=== PATIENT | male | born 1980 | race Caucasian/White ===

== ENCOUNTER 2016-11-28 06:26 | Emergency (ER) | payer OTHER ==
[~2016-11-28] VITALS: Ht 177.8 cm; Wt 104.3 kg
[2016-11-28] MEDS ORDERED: PAXIL20 M1 PO (06:53)
--- NOTE | 2016-11-28 06:58 | ED GENERAL ADULT ---
History of Present Illness General Chief Complaint: General Adult Stated Complaint: SWEATY, HANDS ARE NUMB, WHITE, NAUSEA PER PT Source: patient Exam Limitations: no limitations Vital Signs & Intake/Output Vital Signs & Intake/Output Vital Signs Date Time Temp Pulse Resp B/P Pulse O2 O2 Flow FiO2 Ox Delivery Rate 11/28 0715 96.8 80 18 129/75 98 11/28 0709 99 Room Air 11/28 0643 96.5 103 16 142/75 99 Room Air Allergies Coded Allergies: No Known Allergies (08/09/16) Triage Note: 36yo MALE TO TRIAGE W/CO WHITE, N,V,D X 2 HRS. Triage Nurses Notes Reviewed? yes HPI: Patient was driving to work this morning when he suddenly felt nauseous and began vomiting. Shortly thereafter he broke out in a cold sweat. Patient became nervous and started to breathe fast. Patient states that then his hands cramped up. Patient drove straight to the emergency room. Patient denies any chest pain or palpitations. Patient denies any abdominal pain or diarrhea. Patient states that he does have a nonproductive cough for the past 2 days. Patient states he is now getting a frontal headache only when he coughs. There is no pain when he is not coughing. There is no radiation of the pain. The pain is a pressure sensation that he rates as a 4 out of 10. Of note patient states that he drank heavily over the weekend which is very unusual for him and he abruptly stopped his Paxil 2 days ago. (KEVIN KELLOGG,KRISTIN Alvarado) Reconcile Medications Paroxetine HCl (Paxil) 20 MG TABLET 1 TAB PO DAILY DEPRESSION (Reported) (STONE KELLOGG,MARY Herrera) Past History Travel History Traveled to [place] past 21 day No Medical History Any Pertinent Medical History? see below for history Psychiatric: depression Surgical History Surgical History: non-contributory Psychosocial History What is your primary language [place] Island[place] Tobacco Use: Never used ETOH Use: occasional use Illicit Drug Use: denies illicit drug use Family History Hx Contributory? No (KEVIN KELLOGG,KRISTIN Alvarado) Review of Systems Review of Systems Constitutional: Reports: see HPI, chills. EENTM: Reports: no symptoms. Respiratory: Reports: see HPI, cough. Cardiovascular: Reports: no symptoms. GI: Reports: see HPI, nausea, vomiting. Genitourinary: Reports: no symptoms. Musculoskeletal: Reports: no symptoms. Skin: Reports: see HPI. Neurological/Psychological: Reports: no symptoms. Hematologic/Endocrine: Reports: no symptoms. Immunologic/Allergic: Reports: no symptoms. All Other Systems: Reviewed and Negative (KEVIN KELLOGG,KRISTIN Alvarado) Physical Exam Physical Exam General Appearance: well developed/nourished, alert, awake, anxious, moderate distress Head: atraumatic, normal appearance Eyes: Bilateral: PERRL, EOMI. Ears, Nose, Throat: normal pharynx, normal ENT inspection, hearing grossly normal Neck: normal inspection, supple, full range of motion Respiratory: normal breath sounds, chest non-tender, no respiratory distress, lungs clear Cardiovascular: regular rate/rhythm, normal peripheral pulses Peripheral Pulses: 3+ radial (R), 3+ radial (L) Gastrointestinal: normal bowel sounds, soft, non-tender, no organomegaly Back: normal inspection, normal range of motion Extremities: normal inspection, normal capillary refill, normal range of motion, no edema Neurologic/Psych: no motor/sensory deficits, awake, alert, oriented x 3, normal gait, normal mood/affect Skin: intact, normal color, warm/dry, PATIENT STATES HIS SKIN DRIED UP AND SAYS HE CAME INTO THE EMERGENCY ROOM. Lymphatic: no anterior cervical maty Core Measures ACS in differential dx? No CVA/TIA Diagnosis: No Severe Sepsis Present: No Septic Shock Present: No (KEVIN KELLOGG,KRISTIN Alvarado) Progress Differential Diagnoses I considered the following diagnoses in my evaluation of the patient: [ Electrolyte abnormality, medication withdrawal, dehydration, anxiety, carpal spasms] Plan of Care: Orders Procedure Date/time Status LIPASE 11/28 0652 Complete ETHANOL 11/28 0652 Complete COMPREHENSIVE METABOLIC PANEL 11/28 06 Complete CBC WITHOUT DIFFERENTIAL 11/28 651 Complete AMYLASE 11/28 06 Complete Current Medications Sig/Ajith Start time Last Medication Dose Stop Time Status Admin Acetaminophen 975 MG ONCE ONE 11/28 0800 AC (Tylenol) 11/28 0801 Laboratory Tests 11/28/16 0658: Anion Gap 23 H, Estimated GFR > 60, BUN/Creatinine Ratio 12.2, Glucose 121 H, Calcium 9.9, Total Bilirubin 1.0, AST 116 H, ALT 169 H, Alkaline Phosphatase 79, Total Protein 8.7 H, Albumin 4.8, Globulin 3.9, Albumin/Globulin Ratio 1.2, Amylase 89, Lipase 195, CBC w Diff NO MAN DIFF REQ, RBC 5.26, MCV 94.2 H, MCH 32.0 H, RDW 12.1, MPV 8.2, Gran % 57.6, Lymphocytes % 33.8, Monocytes % 6.7, Eosinophils % 1.3, Basophils % 0.6, Absolute Granulocytes 3.8, Absolute Lymphocytes 2.2, Absolute Monocytes 0.4, Absolute Eosinophils 0.1, Absolute Basophils 0, PUBS MCHC 34.0, Serum Alcohol 47.0 Initial ED EKG: none Hand-Off Endorsed To: MARY RITTER MD Endorsed Time: 0700 Pending: labs (KEVIN KELLOGG,KRISTIN Alvarado) Comments: 11/28/2016 7:09:23 AM patient signed out to me by Dr. Tran at shift change person. 11/28/2016 7:58:32 AM patient is received a liter of fluids and is feeling better. He is asked for something for a headache and Tylenol has been ordered. I have asked that he follow-up with his primary care physician for reevaluation this week given the elevation of his liver enzyme studies. (MARY RITTER MD) Departure Departure Condition: Stable Referrals: SHREE KELLOGG,SIA Caceres (PCP/Family) Departure Forms: Customer Survey General Discharge Information (KRISTIN TRAN MD) Departure Disposition: HOME OR SELF CARE Clinical Impression Primary Impression: Vomiting Qualifiers: Vomiting type: unspecified Vomiting Intractability: non-intractable Nausea presence: with nausea Qualified Code: R11.2 - Nausea with vomiting, unspecified Secondary Impressions: Alcohol use, Transaminitis Additional Instructions: Try to avoid excessive alcohol. Maintain a good fluid intake for the remainder of the day. Follow-up with your primary care doctor tomorrow. Return if any concerns or sudden worsening. (MARY RITTER MD) Critical Care Note Critical Care Note Critical Care Time: non-applicable (KRISTIN TRAN MD)
[2016-11-28 07:15] VITALS: BP 129/75
[2016-11-28 07:46] LABS: ABSOLUTE BASOPHIL COUNT 0 /CUMM (0.0-0.2); ABSOLUTE EOSINOPHIL COUNT 0.1 /CUMM (0.0-0.7); ABSOLUTE GRANULOCYTE CT 3.8 /CUMM (1.4-6.5); ABSOLUTE LYMPH COUNT 2.2 /CUMM (1.2-3.4); ABSOLUTE MONOCYTE COUNT 0.4 /CUMM (0.10-0.60); BASOPHIL % 0.6 % (0.0-2.0); EOSINOPHIL % 1.3 % (0-5); GRANULOCYTE % 57.6 % (42.2-75.2); HEMATOCRIT 49.6 % (42-52); MEAN CORPUSCULAR VOLUME 94.2 FL (80.0-94.0); MEAN PLATELET VOLUME 8.2 FL (7.4-10.4); PLATELET COUNT 262 /CUMM (130-400); RBC DISTRIBUTION WIDTH 12.1 % (11.5-14.5); RED BLOOD CELL CT 5.26 /CUMM (4.70-6.10); WHITE BLOOD CELL COUNT 6.6 /CUMM (4.8-10.8)
== END 2016-11-28 08:06 ==
LOC: ERH 06:26
PROVIDERS: Emergency Medicine
DX: R11.2 Nausea with vomiting, unspecified (principal); F10.10 Alcohol abuse, uncomplicated; R74.0 Nonspecific elevation of levels of transaminase and lactic acid dehydrogenase [LDH]
CPT/HCPCS: 96361; 96374; G0480; J2405

== ENCOUNTER 2018-06-03 19:43 | Emergency (ER) | payer OTHER ==
[~2018-06-03 19:43] MED LIST: PAXIL20 M1 PO
--- NOTE | 2018-06-03 20:28 | ED HAND/WRIST INJURY COMPLAINT ---
History of Present Illness General Chief Complaint: Laceration Procedure Stated Complaint: LAC TO FINGER NAIL Source: patient Exam Limitations: no limitations Vital Signs & Intake/Output Vital Signs & Intake/Output Vital Signs Date Time Temp Pulse Resp B/P B/P Pulse O2 O2 Flow FiO2 Mean Ox Delivery Rate 06/03 2258 78 122/75 06/03 1946 98.9 86 20 125/80 96 Room Air Allergies Coded Allergies: No Known Allergies (08/09/16) Reconcile Medications Cephalexin (Keflex) 500 MG CAPSULE 1 CAP PO TID finger wound Paroxetine HCl (Paxil) 20 MG TABLET 1 TAB PO DAILY DEPRESSION (Reported) Tramadol HCl 50 MG TABLET 1 TAB PO BIDP PRN pain Triage Note: PT SENT TO ED BY [facility] FOR LACERATION TO RT PINKY NAIL BED. PT STATES THE LACERATION WAS FROM A PIECE OF STEEL. LAST TETANUS WAS APPROX 8 YRS AGO. PT RECEIVED 1 CC 2% LIDO TO WOUND AT [facility]. PT ARRIVED WITH DRESSING IN PLACE. WOUND NOT VISUALIZED IN TRIAGE Triage Nurses Notes Reviewed? yes Occurred: just prior to arrival Duration: hour(s): Timing: single episode today Injury Environment: home Severity: moderate Pain/Injury Location: Right: 5th finger. Context: laceration HPI: 37-year-old male presents emergency department complaining of laceration to right fifth digit sustained at home prior to arrival. Patient states that he was using a wrench slipped and cut finger on a piece of steel. He went to an urgent care and was referred here for further evaluation. Patient reporst tingling sensation in finger tip following the injury. He is up to date with tetanus vaccine. (Winsome CUELLAR,Cely Simpson) Past History Travel History Traveled to [place] past 21 day No Medical History Any Pertinent Medical History? see below for history Neurological: NONE EENT: NONE Cardiovascular: NONE Respiratory: NONE Gastrointestinal: NONE Hepatic: NONE Renal: NONE Musculoskeletal: NONE Psychiatric: depression Endocrine: NONE Surgical History Surgical History: non-contributory Psychosocial History What is your primary language Bulgarian Tobacco Use: Quit >30 days ago ETOH Use: occasional use Illicit Drug Use: denies illicit drug use Family History Hx Contributory? No (Cely Davis) Review of Systems Review of Systems Constitutional: Reports: no symptoms. EENTM: Reports: no symptoms. Respiratory: Reports: no symptoms. Cardiovascular: Reports: no symptoms. GI: Reports: no symptoms. Genitourinary: Reports: no symptoms. Musculoskeletal: Reports: see HPI. Skin: Reports: see HPI. Neurological/Psychological: Reports: no symptoms. Hematologic/Endocrine: Reports: no symptoms. Immunologic/Allergic: Reports: no symptoms. All Other Systems: Reviewed and Negative (Winsome CEULLAR,Cely Simpson) Physical Exam Physical Exam General Appearance: well developed/nourished, no apparent distress, alert, awake Head: atraumatic, normal appearance Eyes: Bilateral: normal appearance. Ears, Nose, Throat: hearing grossly normal Neck: normal inspection, supple, full range of motion Cardiovascular/Respiratory: no respiratory distress Back: normal inspection, normal range of motion Hand Left: normal inspection, normal range of motion Hand Right: 5th digit: lateration to distal finger at lateral aspect adjacent to nail and extending to nail bed, nail is in place and intact, ROM intact Neurologic/Tendon: normal motor functions, normal tendon functions, unable to assess sensation d/t use of lidocaine at urgent care prior to the patient's arrival here in ED Skin: laceration as mentioned (Winsome CUELLAR,Cely Simpson) Progress Differential Diagnosis: contusion, fracture, sprain, laceration, nailbed injury Plan of Care: Orders Procedure Date/time Status XRY-FINGERS, RIGHT 06/03 2145 Active Patient has laceration adjacent to the nail and nailbed injury is evident on physical exam. Despite these findings his nail is intact and was not displaced. Patient offered nail removal to completely close nailned injury as this injury cannot be visualized fully/closed without nail removal however he prefers leaving nail in place and closing surrounding skin. Patient informed of risk of abnormal nail regrowth. Xray shows tuft fracture. Patient placed in finger splint and started on antibiotics. Patient agrees with the plan of care, he was given plastics referral. Discussed findings with Dr. Silva who agrees with this plan. Diagnostic Imaging: Viewed by Me: Radiology Read. Discussed w/RAD: Radiology Read. Radiology Impression: PATIENT: ROSSY JACOBO PRESENT AGE: 37 PATIENT ACCOUNT NO: [id number] : 82 LOCATION: [facility] ORDERING PHYSICIAN: Cely CUELLAR SERVICE DATE: 06/03/18 EXAM TYPE: RAD - XRY-FINGERS, RIGHT EXAMINATION: AP right hand, 2 views fifth digit CLINICAL INFORMATION: Distal pinky laceration, pain COMPARISON: None FINDINGS: There is a comminuted fracture of the distal aspect of the distal phalanx of the right fifth digits. Fractures mildly displaced. The fracture line does not extend to the distal interphalangeal joint. No other fractures identified. Laceration of the overlying soft tissues is demonstrated most likely on the lateral view. The remainder of the hand examination is within normal limits. No radiopaque foreign body. IMPRESSION: Comminuted, mildly displaced fracture involving the distal phalanx of the right fifth finger with associated laceration. DICTATED BY: Cassie Bond MD DATE/TIME DICTATED:06/03/182237 SAW EDGE FUSER CIRCULAR:SUNIL DATE/TIME TRANSCRIBED:06/03/182237 CONFIDENTIAL, DO NOT COPY WITHOUT APPROPRIATE AUTHORIZATION. <Electronically signed in Other Vendor System> SIGNED BY: Cassie Bond MD 06/03/18 [id number] (Winsome CUELLAR,Cely Simpson) Departure Departure Disposition: HOME OR SELF CARE Condition: Stable Clinical Impression Primary Impression: Finger laceration Qualifiers: Encounter type: initial encounter Finger: little finger Damage to nail status: unspecified Foreign body presence: without foreign body Laterality: right Qualified Code: S61.216A - Laceration without foreign body of right little finger without damage to nail, initial encounter Secondary Impressions: Open fracture of distal phalangeal tuft Referrals: Tylor KELLOGG,Aranza Marx (PCP/Family) Wes KELLOGG,Sanchez Hightower Additional Instructions: Wear finger splint and follow up with hand specialist. Return in 7-10 days for removal of stitches. Take full course of antibiotics. Take percocet as prescribed as needed for pain. Return sooner if you develop worsening symptoms including redness, swelling, increasing pain. Please note that there might be incidental findings in your evaluation that are unrelated to the current emergency department visit. Please notify your primary care doctor about this emergency department visit in order to obtain and review all of the testing performed so that these incidental findings can be monitored as needed. If you had an x-ray performed, please understand that some fractures may not be seen on the initial set of x-rays. If your symptoms persist you might need a repeat set of x-rays to check for such a fracture. If you had a laceration evaluated, please understand that foreign bodies such as glass or wood may not be visible to the naked eye or on plain x-rays. If the wound becomes red, swollen, increasingly more painful or if there is any drainage from the wound, please have it reevaluated by a physician for the possibility of a retained foreign body. If you're unable to follow up as outlined in the discharge instructions please return to the emergency department. Thank you for choosing the [facility] Emergency Department for your care. It was a pleasure to serve you today. Departure Forms: Customer Survey General Discharge Information Prescriptions: Current Visit Scripts Tramadol HCl 1 TAB PO BIDP PRN pain #10 TAB Cephalexin (Keflex) 1 CAP PO TID #21 CAP (Winsome CUELLAR,Cely Simpson) PA/GOVERNMENT AFFAIRS SPECIALIST Co-Sign Statement Statement: ED Attending supervision documentation- I saw and evaluated the patient. I have also reviewed all the pertinent lab results and diagnostic results. I agree with the findings and the plan of care as documented in the PA's/GOVERNMENT AFFAIRS SPECIALIST's documentation. x I have reviewed the ED Record and agree with the PA's/GOVERNMENT AFFAIRS SPECIALIST's documentation. [] Additions or exceptions (if any) to the PAs/GOVERNMENT AFFAIRS SPECIALIST's note and plan are summarized below: [] (Ricardo KELLOGG,Eric) Procedures Laceration/Wound Repair Laceration/Wound Repair: Wound Location: 5th finger Wound's Depth, Shape: irregular Wound Length (cm): 1 Wound Explored: irrigated extensively Irrigated w/ Saline (ccs): 500 Betadine Prep? Yes Anesthesia: digit block, 1% lidocaine Volume Anesthetic (ccs): 5 Wound Repaired With: sutures Suture Size/Type: 4:0, nylon Number of Sutures: 4 Splint Applied? Yes By Who? by me Type of Splint Applied: finger Tetanus Status: up to date Progress: Patient tolerated procedure well. (Cely Davis)
--- NOTE | 2018-06-03 22:43 | RADIOLOGY REPORT ---
EXAMINATION: AP right hand, 2 views fifth digit CLINICAL INFORMATION: Distal pinky laceration, pain COMPARISON: None FINDINGS: There is a comminuted fracture of the distal aspect of the distal phalanx of the right fifth digits. Fractures mildly displaced. The fracture line does not extend to the distal interphalangeal joint. No other fractures identified. Laceration of the overlying soft tissues is demonstrated most likely on the lateral view. The remainder of the hand examination is within normal limits. No radiopaque foreign body. IMPRESSION: Comminuted, mildly displaced fracture involving the distal phalanx of the right fifth finger with associated laceration.
[2018-06-03] MEDS ORDERED: KEFLEX500 M1 PO (22:48)
[2018-06-03] MEDS ORDERED: TRAMADOL HCL50 M1 PO (22:48)
[2018-06-03 22:58] VITALS: BP 122/75
== END 2018-06-03 22:59 ==
LOC: ERH 19:43
DX: S61.316A Laceration without foreign body of right little finger with damage to nail, initial encounter (principal); S62.636A Displaced fracture of distal phalanx of right little finger, initial encounter for closed fracture; Z87.891 Personal history of nicotine dependence; W45.8XXA Other foreign body or object entering through skin, initial encounter; Y93.89 Activity, other specified; Y92.009 Unspecified place in unspecified non-institutional (private) residence as the place of occurrence of the external cause
CPT/HCPCS: 73140-RT; J2001

== ENCOUNTER 2018-06-14 09:08 | Emergency (ER) | payer OTHER ==
[~2018-06-14] VITALS: Ht 177.8 cm; Wt 102.1 kg
[~2018-06-14 09:08] MED LIST changes: +KEFLEX500 M1 PO; +TRAMADOL HCL50 M1 PO
[2018-06-14 09:22] VITALS: BP 118/72
--- NOTE | 2018-06-14 09:45 | ED HAND/WRIST INJURY COMPLAINT ---
History of Present Illness General Chief Complaint: Suture Removal/Wound Recheck Stated Complaint: SUTURE REMOVAL Source: patient Exam Limitations: no limitations Vital Signs & Intake/Output Vital Signs & Intake/Output Vital Signs Date Time Temp Pulse Resp B/P B/P Pulse O2 O2 Flow FiO2 Mean Ox Delivery Rate 06/14 0922 98.2 67 20 118/72 99 Room Air Allergies Coded Allergies: No Known Allergies (08/09/16) Reconcile Medications Cephalexin (Keflex) 500 MG CAPSULE 1 CAP PO TID finger wound Paroxetine HCl (Paxil) 20 MG TABLET 1 TAB PO DAILY DEPRESSION (Reported) Tramadol HCl 50 MG TABLET 1 TAB PO BIDP PRN pain Triage Note: HERE FOR SUTURE REMOVAL TO R 4RTH FINGER, 4 SUTRES PLACED ON 06/01. Triage Nurses Notes Reviewed? yes HPI: 37-year-old male presents for wound check to his right pinky. He had laceration on June 01. He comes back today for suture removal. He apparently also broke his finger at that time his penis splint. He had finished antibiotic therapy. He continues to use topical triple antibiotic ointment. (Jackie Torres PA-C) Past History Travel History Traveled to [place] past 21 day No Medical History Any Pertinent Medical History? see below for history Neurological: NONE EENT: NONE Cardiovascular: NONE Respiratory: NONE Gastrointestinal: NONE Hepatic: NONE Renal: NONE Musculoskeletal: NONE Psychiatric: depression Endocrine: NONE Surgical History Surgical History: non-contributory Psychosocial History What is your primary language Kinyar[place] Tobacco Use: Current Daily Use Daily Tobacco Use Amount/Type: =< 4 Cigarettes daily ETOH Use: denies use Family History Hx Contributory? No (Jackie Torres PA-C) Review of Systems Review of Systems Constitutional: Denies: no symptoms, see HPI, chills, diaphoresis, fever, malaise, weakness, unexplained weight loss. EENTM: Denies: no symptoms, see HPI, blurred vision, double vision, visual changes, eye pain, eye drainage, eye tearing, icterus, ear discharge, ear pain, ear redness, hearing changes, nasal congestion, epistaxis, nasal pain, throat pain, throat swelling, mouth pain, tooth pain. Respiratory: Denies: no symptoms, see HPI, cough, hemoptysis, orthopnea, short of breath, sputum production, stridor, wheezing. Cardiovascular: Denies: no symptoms, see HPI, chest pain, edema, orthopena, palpitations, peripheral edema, syncope. GI: Denies: no symptoms, see HPI, abdominal pain, bloating, constipation, diarrhea, distention, bowel incontinence, melena, nausea, bloody stool, changes in stool, vomiting, steatorrhea. Skin: Denies: no symptoms, see HPI, cysts, change in skin color, change in hair/nails, dryness, erythema, jaundice, lesions, lymphangitis, lumps, moles, rash. All Other Systems: Reviewed and Negative (Melissa RAVI,Jackie) Physical Exam Physical Exam General Appearance: well developed/nourished, no apparent distress, alert, awake Head: atraumatic, normal appearance Eyes: Bilateral: normal appearance. Cardiovascular/Respiratory: regular rate/rhythm, no respiratory distress Hand Left: normal inspection Hand Right: 5th finger (4 SUTURES REMOVED, BLACK AND B) (Melissa RAVI,Jackie) Progress Differential Diagnosis: fracture, LACERATION Plan of Care: 4 sutures removed. Wound is well approximated. Continue using triple antibiotic therapy. Able to wash wound now. Continue splinting the finger. (Melissa RAVI,Jackie) Departure Departure Disposition: HOME OR SELF CARE Condition: Stable Clinical Impression Primary Impression: Laceration of finger Referrals: Aranza Snider MD, I (PCP/Family) Additional Instructions: Continue to use the splint for the pinky. Additionally able to wash as instructed. Continue [id number] medication such as Advil or Tylenol for pain. Continue use of splint. Topical Triple antibiotic therapy is okay to use. Departure Forms: Customer Survey General Discharge Information (Melissa RAVI,Jackie) PA/PNEUMATIC TESTER Co-Sign Statement Statement: ED Attending supervision documentation- [] I saw and evaluated the patient. I have also reviewed all the pertinent lab results and diagnostic results. I agree with the findings and the plan of care as documented in the PA's/PNEUMATIC TESTER's documentation. [x] I have reviewed the ED Record and agree with the PA's/PNEUMATIC TESTER's documentation. [] Additions or exceptions (if any) to the PAs/PNEUMATIC TESTER's note and plan are summarized below: [] (Iman KELLOGG,[facility])
== END 2018-06-14 10:20 ==
LOC: ERH 09:08
DX: Z48.02 Encounter for removal of sutures (principal)